=== PATIENT | female | born 1965 | race Caucasian/White ===

== ENCOUNTER → 2017-12-27 | Outpatient (CLI) | payer OTHER ==
[~2017-12-27] MED LIST: LEVO100T95 PO
--- NOTE | 2017-12-28 11:14 | RADIOLOGY IMAGING REPORT ---
[place] [facility] [place] NAME: JOSETTE PIERSON : [id number] MR: [id number] V: [id number] EXAM DATE: [id number] ORDERING PHYSICIAN: MAX COY TECHNOLOGIST: Aracely Harris PROCEDURE:BILATERAL DIGITAL SCREENING MAMMOGRAM WITH CAD ASSISTED INTERPRETATION & 3D TOMOSYNTHESIS COMPARISON:Prior mammograms 04/18/12. INDICATIONS:SCREENING FINDINGS: A small amount of fibroglandular tissue is seen throughout the breasts. There is a small focal area of increased density posterior to mid nipple line on the Left MLO view lateral on the Left CC view for which spot compression view is recommended. DIAGNOSTIC CATEGORY 0--INCOMPLETE: NEED ADDITIONAL IMAGING EVALUATION. RECOMMENDATIONS: ADDITIONAL MAMMOGRAPHIC VIEWS REQUIRED: LEFT BREAST. IMPRESSION: BIRADS 0: Incomplete Additional views Left breast recommended as described. Dictated by: Aspen Fletcher M.D. on 12/27/2017 at 17:20 Transcribed by: NEGRITO on 12/28/2017 at 10:51 Approved by: Aspen Fletcher M.D. on 12/28/2017 at 11:13 [facility]
== END ==
LOC: MAMO 02:49
PROVIDERS: ATTEND Student in an Organized Health Care Education/Training Program
DX: Z12.31 Encounter for screening mammogram for malignant neoplasm of breast (principal); R92.8 Other abnormal and inconclusive findings on diagnostic imaging of breast
CPT/HCPCS: 77063; 77067